=== PATIENT | female | born 1995 | race Caucasian/White ===

== ENCOUNTER 2017-12-18 21:08 | Emergency (ER) | payer BC ==
[2017-12-18 21:13] VITALS: BP 123/82; PULSE 66; TEMP 98.1
== END 2017-12-18 21:31 | disposition home or self-care (01) ==
LOC: COL.ER 21:08
DX: S09.90XA Unspecified injury of head, initial encounter (principal); S00.83XA Contusion of other part of head, initial encounter; W50.0XXA Accidental hit or strike by another person, initial encounter

== ENCOUNTER 2018-10-22 07:40 | Inpatient (IN) | payer BC ==
[~2018-10-22] VITALS: Wt 64.5 kg
[2018-10-22] VITALS (47 sets, daily range): BP systolic 99–196; BP diastolic 53–82; PULSE 66–155; TEMP 98.3–99.2
[~2018-10-22 07:40] MED LIST: PRENATAL 191 TAB PO
--- NOTE | 2018-10-22 07:50 | NUR ---
Patient ambulatory to LR 5, changed into gown, FHR/TOCO monitors placed and explained. Patient states she started leidy yesterday and they have become closer/stronger, denies any leaking of fluid or vaginal bleeding. 0800:SVE-6-7//-1 Plan of care discussed and will continue to monitor. Dr. Poon called and notified. 0815: IV started in left wrist per Jeff BROWN.
[2018-10-22 08:31] LABS: BASO % 0.2 % (0.0-2.0); EOS # 0.1 (0.0-0.7); EOS % 0.6 % (0-4.0); GRAN % 73.6 % (42.2-75.2); HEMOGLOBIN 11.4 g/dl (12.5-16.0); LYMPH # 1.7 (1.2-3.4); LYMPH % 17.6 % (20.0-51.0); MEAN CELL VOLUME 80 fl (80.0-100.0); MEAN CORPUSCULAR HEMOGLOBIN 26 pg (27.0-31.0); MEAN CORPUSCULAR HGB CONC 32 g/dl (33.0-37.0); MEAN PLATELET VOLUME 11.8 fl (7.4-10.4); MONO # 0.7 (0.1-0.6); MONO % 7.7 % (1.7-9.3); PLATELET COUNT 211 K/mm3 (130-400); RED BLOOD COUNT 4.43 M/mm3 (4.10-5.30); REDCELL DISTRIBUTION WIDTH-CV 13.9 % (11.5-14.5)
[2018-10-22 08:32] LABS: HEMATOCRIT 35.4 % (37.0-47.0)
--- NOTE | 2018-10-22 08:50 | NUR ---
at bedside and does ultra sound at this time. Physician discusses plan of care with patient and spouse. SVE per physician /-
--- NOTE | 2018-10-22 10:55 | NUR ---
Dr. Pope at bedside and assessing patient/FHR strip SVE per physician 6-/ and orders to start pitocin and patient agrees. Pitocin started per protocol.
--- NOTE | 2018-10-22 12:10 | NUR ---
Patient requesting epidural at this time and Vivek Shelley RN notified. 1225: Patient sat up on edge of bed for procedure. Vivek Shelley at bedside discussing plan of care. FHR difficult to trace at this time due to maternal position. 1239: Single shot given and patient tolerates well. 1241: Test dose given and patient tolerates well. 1246: Patient repositioned and becoming comfortable. 1310: Patient comfortable with epidural and doe placed at this time and patien tolerates well. SVE-- with very bulgy bag. Dr. Pope at nurses station and updated. 1318: Dr. Pope at bedside and SVE-/-2 and AROM at this time with clear fluid. Pericare done and patient repositioned. Will continue to monitor.
--- NOTE | 2018-10-22 13:30 | NUR ---
Recurrent variable decelerations continue. Patient turned right lateral with left leg resting in stirrup. 1445:SVE-9-10/100/-2 and patient sits up and legs lowered. 1520: SVE-9-10/100/-2 and patient turned left lateral with right leg resting in stirrup. Will cotinue to monitor
--- NOTE | 2018-10-22 13:30 | NUR ---
FHR tracing recurrent variable deceleration. Patient left lateral with right leg resting in stirrup.
--- NOTE | 2018-10-22 15:50 | NUR ---
FHR having recurrent early decelerations. FHR baseline 125 bpm. 1553: FHR decreasing to 115-120 bmp for approx. 4 minutes and early decelerations noted. SVE: Per Royal BROWN 9-10/100/-1. PAtient sat up and FHR increasing back to baseline.
--- NOTE | 2018-10-22 17:00 | NUR ---
1600- Bedside report from STEPHANIE Esqueda. E 2. Pitocin infusing at 6mU. Patient repositioned to sitting upright at this time. 1630- See Physician Notification. [id number]- Subtle decelerations noted on FHT strip. 1700- at bedside. E , unchanged since 1315. Plan of care discussed with patient regarding possible need for section or other possible interventions. Questions encouraged and answered. Urmila emptied. MD will recheck and revisit options at 1800.
--- NOTE | 2018-10-22 20:00 | NUR ---
1750- on unit monitoring FHT strip from nurses station. 180- at bedside. SVE Complete/+1. 1810- Patient starts pushing with contractions with RN at bedside. 1829- Decels noted after contractions and recover to baseline within 30-60 seconds. remains on unit to monitor FHT strip. 1914- at bedside. 1919- Kearns catheter removed. 1949- at bedside. Plan of care discussed. Vacuum vs. Forcep delivery discussed. Questions encouraged and answered. 2003- of viable baby boy with vacuum assistance. Cord clamped and cut. Pitocin off. 2007- Spontaneous delivery of placenta. Pitocin infusing at 333 ml/hr. Partial 3rd degree tear repaired by . Pericare provided. Ice pack applied. 2014- PP Recovery started.
--- NOTE | 2018-10-22 22:25 | NUR ---
Pt able to bend knees and lift hips from bed, but not hold legs up off of bed. IV to INT, epidural catheter dc'd, pericare performed, clean gown on, new rambo-ice pack applied, panties on. Pivot transfer to wheelchair with standby assist of 2, able to lock knees. Transferred to post- room, with instructions to call for assistance to get out of bed. Verbalizes ynderstanding.
[2018-10-23] VITALS: BP 111/68; PULSE 95; TEMP 98.4
[2018-10-23 04:00] VITALS: BP 96/57; PULSE 86; TEMP 97.7
[2018-10-23 07:35] VITALS: BP 109/54; PULSE 79; TEMP 97.7
[2018-10-23 09:29] LABS: HEMOGLOBIN 10.8 g/dl (12.5-16.0)
[2018-10-23 09:34] LABS: HEMATOCRIT 33.5 % (37.0-47.0)
[2018-10-23 11:35] VITALS: BP 103/60; PULSE 104; TEMP 98
[2018-10-23 16:20] VITALS: BP 101/58; PULSE 79; TEMP 97.6
[2018-10-23 20:30] VITALS: BP 102/59; PULSE 77; TEMP 97.7
[2018-10-24 07:45] VITALS: BP 111/63; PULSE 73; TEMP 98
[2018-10-24] MEDS ORDERED: IBU600 MG PO (13:58)
[2018-10-24] MEDS ORDERED: PERCOCET 325 MG1 TA2 PO (13:59)
== END 2018-10-24 15:05 | disposition home or self-care (01) | DRG 768 ==
LOC: LDRO 07:40 → LDR 08:12 → OB 21:39
PROVIDERS: Obstetrics & Gynecology; ADMIT Obstetrics & Gynecology
PROC: 10D07Z6 Extraction of Products of Conception, Vacuum, Via Natural or Artificial Opening (ICD-10-PCS; principal; 2018-10-22)
PROC: 0DQR0ZZ Repair Anal Sphincter, Open Approach (ICD-10-PCS; 2018-10-22)
DX: O64.0XX0 Obstructed labor due to incomplete rotation of fetal head, not applicable or unspecified (principal); Z37.0 Single live birth; O70.20 Third degree perineal laceration during delivery, unspecified; O76 Abnormality in fetal heart rate and rhythm complicating labor and delivery; Z3A.39 39 weeks gestation of pregnancy
CPT/HCPCS: J2590; J2795; J7120

== ENCOUNTER 2021-12-23 10:29 | Outpatient (CLI) | payer BC ==
[~2021-12-23] VITALS: Ht 157.5 cm; Wt 55.5 kg
[~2021-12-23 10:29] MED LIST changes: +IBU600 MG PO; +PERCOCET 325 MG1 TA2 PO
[2021-12-23 11:00] VITALS: BP 110/58; PULSE 83; TEMP 97.9
--- NOTE | 2021-12-23 11:00 | NUR ---
1039- Pt arrives on unit ambulatory with spouse and 3yo son. Pt was sent from the office after a positive nitrozine test showing SROM. Pt states she noticed a gush of fluid around 0630 this morning, clear fluid, no odor. Pt into bathroom to change into gown. 1044- PT into bed. VSS. ROM + test obtained per MD order. Pt tolerated well. 1050- FHT 148-155 bpm per dopplar. TOCO applied. Pt denies cramping. States she noticed a slight pink tinge on her peripad. +FM per Pt. Assessment completed.
[2021-12-23] MEDS ORDERED: PRENATAL TABLET PO (11:18)
--- NOTE | 2021-12-23 12:00 | NUR ---
1140- IV start without difficulty. Labs obtain for possible future orders. LR started at 125ml/hr. 1149- Betamethasone given in left buttock, Pt tolerated well. 1152- Dr Velarde at bedside. 1157- Bedside US per Dr Velarde. 1202- Sterile Speculum exam by MD, see physician notes.
[2021-12-23 12:30] VITALS: BP 118/67; PULSE 85
[2021-12-23 13:30] VITALS: BP 110/62; PULSE 79
[2021-12-23 14:00] VITALS: BP 121/66; PULSE 93
[2021-12-23 14:30] VITALS: BP 115/57; PULSE 77
--- NOTE | 2021-12-23 14:30 | NUR ---
Occational contractions noted on monitor along with irritability. Pt denies cramping or tightening. Pt denies leaking of fluid.
[2021-12-23 15:00] VITALS: BP 102/59; PULSE 88; TEMP 98.1
--- NOTE | 2021-12-23 15:00 | NUR ---
1450- Pt denies feeling cramping or abd tightening. Pt up to void. Peripad and underwear on. 1500- Pt back to bed. FHT 140's via doppler. Pt resting comfortably in bed.
--- NOTE | 2021-12-23 15:25 | NUR ---
1516- This RN, Brianna, [facility] RN, and 2 transport personel at bedside, introductions made, Paperwork signed. Pt denies questions. 1521- TOCO off. Pt transfers independenly from bed to [facility]. 1525- Pt leaves unit with transport team in stable condition.
== END 2021-12-23 15:25 | disposition short-term general hospital (02) ==
LOC: LDRO 10:29
DX: Z34.93 Encounter for supervision of normal pregnancy, unspecified, third trimester (principal); Z3A.27 27 weeks gestation of pregnancy
CPT/HCPCS: J0290; J0702; J7120